=== PATIENT | female | born 1970 | race Caucasian/White ===

== ENCOUNTER 2022-08-10 10:30 | Day surgery (SDC) | payer OTHER ==
[~2022-08-10] VITALS: Ht 157.5 cm; Wt 107.5 kg
[2022-08-10] MEDS ORDERED: fentaNYL citrate 0.05 MG/ML VIAL ONE (13:09)
[2022-08-10] MEDS ORDERED: LIDOCAINE 2% 100 MG/5 ML UJET TP ONE (13:09)
[2022-08-10] MEDS ORDERED: fentaNYL citrate 0.05 MG/ML VIAL IVP ONE (15:00)
== END 2022-08-10 14:43 | disposition home or self-care (01) ==
LOC: MDS 10:30 → MMU 10:31 → MDS 14:43
PROVIDERS: ATTEND Internal Medicine Gastroenterology
DX: Z12.11 Encounter for screening for malignant neoplasm of colon (principal); K64.9 Unspecified hemorrhoids; E11.9 Type 2 diabetes mellitus without complications; Z79.84 Long term (current) use of oral hypoglycemic drugs; Z79.899 Other long term (current) drug therapy; Z90.49 Acquired absence of other specified parts of digestive tract
CPT/HCPCS: 45378; J3010